=== PATIENT | female | born 1985 | race Caucasian/White ===

== ENCOUNTER 2021-09-25 01:16 | Emergency (ER) | payer OTHER ==
[~2021-09-25] VITALS: Ht 157.5 cm; Wt 65.8 kg
[2021-09-25 01:28] VITALS: BP 142/84
== END 2021-09-25 01:40 | disposition home or self-care (01) ==
LOC: ER 01:16
DX: U07.1 COVID-19 (principal); J45.909 Unspecified asthma, uncomplicated